=== PATIENT | female | born 1960 | race Asian ===

== ENCOUNTER 2016-12-01 17:50 | Emergency (ER) | payer OTHER ==
[~2016-12-01] VITALS: Ht 167.6 cm; Wt 81.6 kg
[2016-12-01 18:07] VITALS: BP 120/73
--- NOTE | 2016-12-01 20:18 | ED INFLUENZA/URI COMPLAINT ---
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 ALSO REPORTS CONGESTION AND COUGH. JUST RETURNED FROM [place] 2 WEEKS AGO. DENIED FEVER. Triage Nurses Notes Reviewed? 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 The symptoms began while she was in [place] F persisted since being here and she has not taken any [id number] medications or sought care until this evening. There are no sick contacts no fever no chills no tinnitus. She denies any nausea vomiting shortness breath chest pain or abdominal pain. There are no modifying factors or associated symptoms otherwise no change in her mental status. 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 see below for history Hepatic: HEP B Surgical History Surgical History: non-contributory Psychosocial History What is your primary language Nepali Tobacco Use: Never used Family History Hx Contributory? 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 All Other Systems: Reviewed and Negative Comments Review of systems: See HPI, All other systems negative. Constitutional, no chills no fever, no malaise HEENT: No visual changes no sore throat congestioN Cardiovascular: No chest pain , no palpitation Skin, no rashes, no change in skin Respiratory: No dyspnea no cough no sputum GI: No nausea no vomiting, no diarrhea : No dysuria No hematuria Muscle skeletal: No joint pain, no joint swelling, no back pain, no neck pain, Neurologic: No numbness no confusion, headache Psych: No stress no anxiety no depression,. Heme/endocrine: No bruising no bleeding Immunology: No lymphadenopathy (TESFAYE [place]INC[place]) Physical Exam Physical Exam General Appearance: well developed/nourished, alert, awake Ears, Nose, Throat: moist mucous membrane, hearing grossly normal, nasal congestion, nasal drainage Comments: Well-developed well-nourished patient in no apparent distress. Head/Face: Atraumatic, bilateral maxillary/frontal sinus tenderness, no facial swelling Eyes: PERRL, EOMI, no conjunctival injection. No nystagmus Ear:External auditory canal and Tympanic membranes clear, no erythema, no FB. Nose: atraumatic.Normal inspection: No bleeding, no septal hematoma Throat: Moist mucous membranes.Pharynx normal. No pharyngeal erythema/exudate seen. No stridor/drooling or assymetry. No swelling or edema. Neck: Supple, no lymphadenopathy, FROM Back: FROM, Nontender Cardiovascular: Regular rate and rhythms no murmurs rubs Respiratory: No respiratory distress. Patient speaking in full complete sentences. Breath sounds clear to auscultation bilaterally: NO W/R/R Extremities: full range of motion Neuro: Alert and oriented x3 Skin: Warm & dry;No appreciable rash on exposed skin Psych: Mood affect normal, normal memory normal judgment. Core Measures Severe Sepsis Present: No Septic Shock Present: No (TESFAYE WINC[place]) Progress Differential Diagnosis: influenza, otitis, pneumonia, pharyngitis, sinusitis Plan of Care: Patient clinically appears well her lungs are clear to auscultation vitals are within normal limits I discussed the need for close follow-up with primary care prescription for Nasonex Augmentin provided advised return anytime sooner with any concerns patient is nontoxic appearing afebrile they feel comfortable with plan clear discharge Initial ED EKG: none (TESFAYE WINCHESTER) Departure Departure Time of Disposition: 2024 Disposition: HOME OR SELF CARE Condition: Stable Clinical Impression Primary Impression: Sinusitis Referrals: PATIENT HAS NO PRIMARY CARE DR (PCP/Family) MARJAN MD,JARET Additional Instructions: augmentin and nasonex as directed, if this prescription is to much, you can purchase over the counter flonase. follow up with primary care physician dr palma. tylenol or motrin for pain. Departure Forms: Customer Survey General Discharge Information Prescriptions: Current Visit Scripts Amoxicillin/Potassium Clav (Augmentin 875-125 Tablet) 1 TAB PO BID #14 TAB Mometasone Furoate (Nasonex) 2 SPRAY NASB DAILY #1 INHAL (LISSETT BANERJEE,TESFAYE) PA/NURSING STAFF DEVELOPMENT COORDINATOR Co-Sign Statement Statement: ED Attending supervision documentation- [] I saw and evaluated the patient. I have also reviewed all the pertinent lab results and diagnostic results. I agree with the findings and the plan of care as documented in the PA's/NURSING STAFF DEVELOPMENT COORDINATOR's documentation. [X] I have reviewed the ED Record and agree with the PA's/NURSING STAFF DEVELOPMENT COORDINATOR's documentation. [] Additions or exceptions (if any) to the PAs/NURSING STAFF DEVELOPMENT COORDINATOR's note and plan are summarized below: [] (HECTOR MONAE,JIMMIE)
[2016-12-01] MEDS ORDERED: NASONEX17 GM NASB (20:26)
[2016-12-01] MEDS ORDERED: AUGMENTIN 875-1 EACH PO (20:26)
== END 2016-12-01 20:44 ==
LOC: ERH 17:50
DX: J32.9 Chronic sinusitis, unspecified (principal)